=== PATIENT | female | born 1995 | race Caucasian/White ===

== ENCOUNTER 2022-06-01 11:40 | Emergency (ER) | payer OTHER, SELFPAY ==
[2022-06-01 11:56] VITALS: BP 115/72; PULSE 68; RESP 18; TEMP 36; O2SAT 100
[2022-06-01 11:57] VITALS: BP 115/72; PULSE 68; RESP 18; TEMP 36; O2SAT 100
--- NOTE | 2022-06-01 12:27 | ED.URI ---
HPI - URI/Sore Throat General Chief Complaint: Upper Respiratory Infection Stated Complaint: cold symptoms Source: patient Mode of arrival: ambulatory Limitations: no limitations History of Present Illness HPI Narrative: 26-year-old female presents to [facility] with complaints of sore throat, left ear pain, cough, sneeze an intermittently difficultly with taking deep breaths for the past 3-4 days. Patient is a nonsmoker. Patient denies sick contacts. Patient has been taking [id number] Mucinex, Sudafed and ibuprofen with minimal relief. Patient denies fever, body aches, chills, nausea, vomiting or diarrhea MD elicited complaint: sore throat, rhinorrhea and nasal congestion Onset (ago): day(s) (3) Description of mucous: clear Able to tolerate fluids by mouth: Yes Exacerbating factors: nothing and swallowing Associated symptoms: denies other symptoms Treatments prior to arrival: ibuprofen and cold medicine Related Data Home Medications Medication Instructions Recorded Confirmed omeprazole 20 mg capsule,delayed 20 mg PO DAILY 06/01/22 06/01/22 release spironolactone 50 mg tablet 50 mg PO DAILY 06/01/22 06/01/22 Allergies Allergy/AdvReac Type Severity Reaction Status Date / Time No Known Allergies Allergy Verified 06/01/22 11:56 Review of Systems Constitutional: Constitutional: Denies fatigue, Denies fever(s) and Denies weakness ENT: Denies vertigo, Denies dizziness, Denies epistaxis, Reports nasal congestion and Reports sore throat Cardiovascular: Cardiovascular: Denies chest pain Respiratory: Respiratory: Denies chest congestion, Reports cough, Denies dyspnea and Denies wheezing Gastrointestinal: Gastrointestinal: Denies abdominal pain, Denies diarrhea, Denies nausea and Denies vomiting Integumentary/Breasts: Skin/Breast: Denies rash Neurologic: Denies dizziness, Denies syncope and Denies headache(s) PMFSH Comments At time of signature, I agree with nursing past medical, surgical, social and family history. There is no relevant family history pertinent to the presenting complaint. Exam Const: General: healthy appearing and no acute distress Nutritional Appearance: well nourished Orientation/consciousness: patient oriented x3 Limitations: no limitations HENMT: Head: normal to inspection Ears: external ears normal, TM's normal bilaterally and EAC's normal Face/Nose/Sinus: Normal external nose present Face and sinus: normal facial exam and sinuses nontender Mouth: Yes Normal oral and palatal mucosa present, Yes lip normal and Yes moist mucous membranes Throat: posterior oropharynx normal and uvula midline Other: Moderate nasal congestion noted, left is worse than right Eyes: Conjunctivae: conjunctivae normal Neck: Neck: normal visual inspection Resp: Effort & Inspection: normal respiratory effort and not tachypneic Auscultation: clear to auscultation bilaterally, no crackles, no rales and no rhonchi Cardio: Rate: regular rate Rhythm: regular rhythm Heart sounds: no murmurs Skin: General skin exam: normal color Rashes: no rashes Wounds: no wounds Neuro: General: patient oriented x3 Speech: normal speech Gait exam (Neuro): Normal gait present Psych: Affect: normal affect Attitude: cooperative Course Course Level of Care: Express Care Visit Vital Signs Vital signs: Vital Signs Temperature 36.0 C L 06/01/22 11:56 Pulse Rate 68 06/01/22 11:56 Respiratory Rate 18 06/01/22 11:56 Blood Pressure 115/72 06/01/22 11:56 Pulse Oximetry 100 06/01/22 11:56 Oxygen Delivery Room Air 06/01/22 11:56 Temperature 36.0 C L 06/01/22 11:57 Pulse Rate 68 06/01/22 11:57 Respiratory Rate 18 06/01/22 11:57 Blood Pressure 115/72 06/01/22 11:57 Pulse Oximetry 100 06/01/22 11:57 Oxygen Delivery Room Air 06/01/22 11:57 MDM - URI/Sore Throat MDM Narrative Medical decision making narrative: Discussed lab results with patient. Instructed patient to
== END 2022-06-01 13:12 | disposition home or self-care (01) ==
PROVIDERS: Emergency Provider Nurse Practitioner Family
DX: B34.9 Viral infection, unspecified (principal); Z20.822 Contact with and (suspected) exposure to COVID-19; K21.9 Gastro-esophageal reflux disease without esophagitis
CPT/HCPCS: 87081; 87426; 87804; 87880; 99203; C9803; G0463

== ENCOUNTER 2024-07-02 16:30 | Emergency (ER) | payer OTHER, SELFPAY ==
--- NOTE | ~2024-07-02 | XR_ITS ---
EXAM: XR nasal bones min 3V DATE: 07/02/2024 17:05 HISTORY: trauma to nose . COMPARISON: None available. FINDINGS: Normal mineralization. The aerated spaces are clear. Transverse minimally depressed nasal bone fracture. No other fracture detected. No lytic or blastic lesion. IMPRESSION: Transverse, minimally depressed nasal bone fracture. Reviewed, dictated and finalized at location K.
--- NOTE | 2024-07-02 16:38 | ED.GENADULT ---
HPI - General Adult General Chief complaint: Urogenital-Female Stated complaint: Nose Injury Time Seen by Provider: 07/02/24 16:39 Source: patient Mode of arrival: ambulatory Limitations: no limitations History of Present Illness HPI narrative: 28-year-old female patient presents to [facility] with complaints of nose pain and UTI symptoms. Patient states she has had some burning with urination urgency and frequency for the past week. Denies fevers body aches or chills. Denies any lower abdominal pain or low back pain. Patient states that she got elbowed in the nose last night and is concerned for fracture. Denies any bleeding at the time of the trauma. Patient states she did ice the nose and it is tender to the touch. Related Data Home Medications ?Medication ?Instructions ?Recorded ?Confirmed ?Last Taken ?Type spironolactone 50 mg tablet 50 mg PO DAILY 06/01/22 06/01/22 Unknown History cetirizine 10 mg tablet (24Hour 10 mg PO DAILY PRN allergy symptoms 07/02/24 07/02/24 Unknown History Allergy) famotidine 20 mg tablet (Acid 20 mg PO DAILY 07/02/24 07/02/24 Unknown History Controller) Allergies Allergy/AdvReac Type Severity Reaction Status Date / Time No Known Allergies Allergy Verified 07/02/24 16:51 Review of Systems Review of Systems: CONSTITUTIONAL: Denies fever, chills, or sweats. EYES: Denies visual changes, redness, or discharge. ENT: Denies rhinorrhea, congestion, sore throat, or otalgia. CARDIOVASCULAR: Denies chest pain, palpitations, or edema. RESPIRATORY: Denies cough or dyspnea. GASTROINTESTINAL: Denies abdominal pain, nausea, vomiting, or diarrhea. GENITOURINARY: Denies dysuria or hematuria. SKIN: Denies rash or itching. MUSCULOSKELETAL: Denies back pain, joint pain, or myalgia. NEUROLOGIC: Denies headache, numbness, or weakness. PSYCHIATRIC: Denies anxiety or depression. PMFSH Comments At the time of my signature I agree with nursing past medical history, surgical, social, and family history. There is no relevant family history pertinent to the presenting complaint. Exam Narrative: GENERAL: Well-appearing, well-nourished, and in no acute distress. HEAD: Normocephalic, atraumatic. EYES: PERRLA and EOMI. ENT: Nares clear, no rhinorrhea or epistaxis. Patient does have some swelling and bruising present to the bridge of the nose and it is tenderness on palpation. Mucous membranes moist. Posterior pharynx with no erythema, tonsillar enlargement, necks exudates or lesions present. Bilateral TMs are clear no erythema or foreign bodies the canal. NECK: Supple. No lymphadenopathy CHEST: Clear to auscultation. No respiratory distress. HEART: Regular rate and rhythm. No murmur heard. Normal peripheral pulses. ABDOMEN: Soft, nontender, nondistended, normal active bowel sounds. No CVA tenderness. EXTREMITIES: Normal range of motion. No edema. SKIN: Warm, dry, no rash. NEURO: No focal deficits. Alert and oriented x3. Course Course Level of Care: Express Care Visit Vital Signs Vital signs: Vital Signs Temperature 36.6 C 07/02/24 16:40 Pulse Rate 62 07/02/24 16:40 Respiratory Rate 16 07/02/24 16:40 Blood Pressure 117/78 07/02/24 16:40 Pulse Oximetry 100 07/02/24 16:40 Temperature 36.6 C 07/02/24 16:40 Pulse Rate 62 07/02/24 16:40 Respiratory Rate 16 07/02/24 16:40 Blood Pressure 117/78 07/02/24 16:40 Pulse Oximetry 100 07/02/24 16:40 Vital signs reviewed Medical Decision Making MDM Narrative Medical decision making narrative: discussed with patient that her urine dip does indicate that she has a urinary tract infection. Discussed with her that we will treat her with some antibiotics and sent it to the lab for culture. If the antibiotics need to be changed she will get a phone call and change the antibiotics at that time. Discussed with patient in length about nasal fractures and that we can do an x-ray but it is not going to change the course of action that we take today not much we are able to do here for a nasal fracture except to have her follow-up with her primary doctor. Regardless we would highly recommend Tylenol and ibuprofen for the pain as well as lots of ice to help with swelling. Patient verbalized understanding but still wants an x-ray done today. Differential Diagnosis Differential Diagnosis: differential diagnosis: Uncomplicated lower UTI, uncomplicated UTI, pyelonephritis . Nasal contusion, nasal fracture. Vital Signs Vital Signs: Vital Signs Temperature 36.6 C 07/02/24 16:40 Pulse Rate 62 07/02/24 16:40 Respiratory Rate 16 07/02/24 16:40 Blood Pressure 117/78 07/02/24 16:40 Pulse Oximetry 100 07/02/24 16:40 Temperature 36.6 C 07/02/24 16:40 Pulse Rate 62 07/02/24 16:40 Respiratory Rate 16 07/02/24 16:40 Blood Pressure 117/78 07/02/24 16:40 Pulse Oximetry 100 07/02/24 16:40 Lab Data Labs: Lab Results 07/02/24 07/02/24 Range/Units 16:45 17:25 POC Urine Color Yellow POC Urine Clarity Cloudy POC Urine pH 7.0 POC Ur Specif [place] 1.020 POC Urine Protein Trace (Negative) POC Ur Glucose (UA) Negative (Negative) POC Urine Ketones Negative (Negative) POC Urine Blood Negative (Negative) POC Urine Nitrite Positive (Negative) POC Urine Bilirubin Negative (Negative) POC Urine Urobilinogen 0.2 POC U Leukocyte Esteras 2+ (Negative) POC Urine HCG, Qual Negative (Negative) Imaging Data Radiologist's impression: [facility] [address] [place] [address] XRay Report Signed Patient: Ada Guaman : 1995 MR#: [id number] Age: 28 Acct:[id number] Loc: [facility] ADM Date: 07/02/24Attending Dr: Ordering Physician: Vanessa Bang ENVIRONMENTAL ENGINEERING AIDE Date of Service: 07/02/24 Procedure(s): XR nasal bones min 3V Accession Number(s): [id number] cc: Parent, Jannet BEAVER; Vanessa Bang ENVIRONMENTAL ENGINEERING AIDE~ EXAM: XR nasal bones min 3V DATE: 07/02/2024 17:05 HISTORY: trauma to nose . COMPARISON: None available. FINDINGS: Normal mineralization. The aerated spaces are clear. Transverse minimally depressed nasal bone fracture. No other fracture detected. No lytic or blastic lesion. IMPRESSION: Transverse, minimally depressed nasal bone fracture. Reviewed, dictated and finalized at location K. Critical Care Time Critical Care Time Critical Care Time: No Discharge Plan Discharge Clinical Impression: Urinary tract infection Qualifiers: Urinary tract infection type: acute cystitis Hematuria presence: without hematuria Qualified Code(s): N30.00 - Acute cystitis without hematuria Closed fracture nasal bone Qualifiers: Encounter type: initial encounter Qualified Code(s): S02.2XXA - Fracture of nasal bones, initial encounter for closed fracture Patient Disposition: Home Condition: Stable Instructions: Antibiotic Form, Urinary Tract Infection in Women (ED) Additional Instructions: We will send a urine culture off to the lab; if the culture identifies an organism that the prescribed antibiotic will not treat, you will receive a phone call from an urgent care staff member and an appropriate antibiotic will be prescribed. -Your symptoms should begin to improve within a day of starting antibiotics. But you should finish all the antibiotic pills you get. Otherwise your infection might come back. -Also recommend: drink more fluid. It might help flush out germs, and it does no harm -Tylenol/ibuprofen prn for pain or fever -Follow-up with your primary care provider for urine recheck or seek ER visit if condition worsens with high fever, nausea, vomiting and severe back pain. Patient Language: Upper Sorbian Prescriptions: New nitrofurantoin monohyd/m-cryst [Macrobid] 100 mg capsule 100 mg PO Q12H 5 Days Qty: 10 0RF Rx Instructions: must administer with a meal/food fluconazole 150 mg tablet 150 mg PO ONCE Qty: 1 0RF Rx Instructions: as a single dose No Action spironolactone 50 mg tablet 50 mg PO DAILY fluticasone propionate [Flonase Allergy Relief] 50 mcg/actuation spray,suspension 1 spray intranasal BID Qty: 16 0RF Rx Instructions: administer into each nostril cetirizine [24Hour Allergy] 10 mg tablet 10 mg PO DAILY PRN (Reason: allergy symptoms) famotidine [Acid Controller] 20 mg tablet 20 mg PO DAILY Follow-up/Referrals: Samuel Vargas MD [Physician] - Parent,SARANYA Babb [Primary Care Provider] - Time of Disposition: 17:53
[2024-07-02 16:40] VITALS: BP 117/78; PULSE 62; RESP 16; TEMP 36.6; O2SAT 100
[2024-07-02 16:47] LABS: EDUAAPPEAR Cloudy; EDUABILI Negative (Negative); EDUABLOOD Negative (Negative); EDUACOLOR1 Yellow; EDUAGLUCOSE Negative (Negative); EDUAKETONE Negative (Negative); EDUALEUKO 2+ (Negative); EDUANITRATE Positive (Negative); EDUAPROTEIN Trace (Negative); EDUAUROBILI 0.2
[2024-07-02 17:28] LABS: BEDSIDEPREGUCG Negative (Negative)
== END 2024-07-02 17:57 | disposition home or self-care (01) ==
PROVIDERS: Emergency Provider Nurse Practitioner Family; PCP Physician Assistant
DX: N30.01 Acute cystitis with hematuria (principal); B96.20 Unspecified Escherichia coli [E. coli] as the cause of diseases classified elsewhere; S02.2XXA Fracture of nasal bones, initial encounter for closed fracture; W50.0XXA Accidental hit or strike by another person, initial encounter; K21.9 Gastro-esophageal reflux disease without esophagitis
CPT/HCPCS: 70160; 81003; 81025; 87086; 87186; 99213; G0463